=== PATIENT | male | born 1975 | race Hispanic/Latino ===

== ENCOUNTER 2018-01-08 05:58 | Emergency (ER) | payer OTHER ==
[~2018-01-08] VITALS: Ht 172.7 cm; Wt 113.4 kg
[~2018-01-08 05:58] MED LIST: CIPROFLOXACIN500 M2 PO; FLAGYL500 MG PO
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
--- NOTE | 2018-01-08 06:54 | RADIOLOGY REPORT ---
EXAMINATION: XR WRIST, LEFT CLINICAL INFORMATION: Fall with dorsal wrist swelling and tenderness COMPARISON: None TECHNIQUE: PA, lateral, and oblique views of the left wrist. FINDINGS: There is an acute ossific fragment at the dorsal aspect of the wrist seen on the lateral view consistent with a triquetral fracture. Carpal rows remain aligned. Joint spaces are maintained. Mild dorsal soft tissue swelling. IMPRESSION: Triquetral fracture.
[2018-01-08] MEDS ORDERED: NORCO 5-325 TA1 EACH PO (07:25)
[2018-01-08 07:33] VITALS: BP 126/88
== END 2018-01-08 07:34 ==
LOC: ERH 05:58
DX: S62.112A Displaced fracture of triquetrum [cuneiform] bone, left wrist, initial encounter for closed fracture (principal); W17.89XA Other fall from one level to another, initial encounter; Y92.9 Unspecified place or not applicable; Y93.9 Activity, unspecified
CPT/HCPCS: 73110-LT; 96372; J1885